=== PATIENT | male | born 1990 | race Hispanic/Latino ===

== ENCOUNTER 2016-11-26 18:21 | Emergency (ER) | payer MEDICAID ==
[2016-11-26 18:54] VITALS: TEMP 98.9; O2SAT 98
[2016-11-26 20:35] LABS: HEMATOCRIT 46.1 % (35.0-51.0); MEAN CELL VOLUME 84.9 fL (80.0-94.0); MEAN CORPUSCULAR HEMOGLOBIN 28.5 pg (27.0-31.0); MEAN CORPUSCULAR HGB CONC 33.6 g/dL (33.0-37.0); MEAN PLATELET VOLUME 8.3 fL (7.2-11.7); RED CELL DISTRIBUTION WIDTH 14.3 % (11.5-14.5); WHITE BLOOD COUNT 12.6 K/uL (4.8-10.8)
--- NOTE | 2016-11-26 21:37 | C.PDOC ---
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 Denies fever or drainage of the injection site. Pt reported injecting heroin once at that site a few days prior to onset of symptoms. Time Seen by Provider: 11/26/16 20:04 Chief Complaint (Nursing): Abnormal Skin Integrity History Per: Patient History/Exam Limitations: no limitations Onset/Duration Of Symptoms: Days Location Of Injury: Right: Forearm Quality Of Symptoms: Other (Abscess) Past Medical History Reviewed: Historical Data, Nursing Documentation, Vital Signs Vital Signs: Last Vital Signs Temp 98.9 F 11/26/16 18:53 Pulse 81 11/26/16 21:47 Resp 16 11/26/16 21:47 BP 132/75 11/26/16 21:47 Pulse Ox 98 11/27/16 00:49 - Medical History PMH: No Chronic Diseases Surgical History: No Surg Hx Family History: States: Unknown Family Hx - Social History Hx Tobacco Use: Yes Hx Alcohol Use: No Hx Substance Use: Yes - Immunization History Hx Tetanus Toxoid Vaccination: No Hx Influenza Vaccination: No Hx Pneumococcal Vaccination: No Review Of Systems Constitutional: Negative for: Fever, Chills Skin: Positive for: Other (Abscess) Physical Exam - Physical Exam Appears: Non-toxic, No Acute Distress Skin: Warm, Dry Head: Atraumatic, Normacephalic Eye(s): bilateral: Normal Inspection Extremity: Normal ROM (x4), No Tenderness, No Deformity, No Swelling, Other ( 5x4cm area of fluctuance to the anterior right forearm with localized erythema, no streaking) Pulses: Left Radial: Normal, Right Radial: Normal Neurological/Psych: Oriented x3, Normal Speech, Normal Cognition ED Course And Treatment - Laboratory Results Result Diagrams: 11/26/16 20:30 O2 Sat by Pulse Oximetry: 98 (Room air) Pulse Ox Interpretation: Normal Progress Note: Motrin administered. I&D performed with success. Patient given wound care instructions and advised to follow up for wound check. - Incision & Drainage Of Abscess Prep Used: Sterile Water, Betadine Procedure: Incised W/Scalpel Blade#:, Drained Pus, Irrigated Cavity W/Saline ( Tolerated well), Probed To Break Up Loculations, Packed W/Gauze Disposition Counseled Patient/Family Regarding: Diagnosis, Need For Followup, Rx Given - Disposition Referrals: emergency room, ER [Other] Disposition: HOME/ ROUTINE Disposition Time: 21:35 Condition: STABLE Additional Instructions: Keep wound dry and clean for 2 days Return to ER in 2 days for wound check and packing removal Keep arm elevated Return to ER if fever, increase redness, severe pain or worse Prescriptions: Clindamycin [Cleocin] 300 mg PO QID #28 cap Instructions: Abscess (ED) Forms: [employer] (Hungarian) - Clinical Impression Clinical Impression: Abscess - Scribe Statement The provider has reviewed the documentation as recorded by the Scribe Gary Fragoso All medical record entries made by the Shondaibe were at my direction and personally dictated by me. I have reviewed the chart and agree that the record accurately reflects my personal performance of the history, physical exam, medical decision making, and the department course for this patient. I have also personally directed, reviewed, and agree with the discharge instructions and disposition.
[2016-11-26 21:47] VITALS: BP 132/75; PULSE 81; RESP 16
== END 2016-11-26 21:46 | disposition home or self-care (01) ==
LOC: C.ER 18:21
DX: L02.413 Cutaneous abscess of right upper limb (principal)

== ENCOUNTER 2016-11-28 20:07 | Emergency (ER) | payer MEDICAID ==
[2016-11-28 20:11] VITALS: BP 112/69; RESP 18; TEMP 97.8
--- NOTE | 2016-11-28 20:53 | C.PDOC ---
History Of Present Illness The pt is a 26yo male, who presents to the ED for a wound check. Pt reports he had an abscess incision and drainage 2 days ago at this facility. Pt states he injected heroin to the site and developed an abscess. He states the redness of the area has significantly improved and currently denies any fevers or chills. Pt offers no additional medical complaints. Time Seen by Provider: 11/28/16 20:13 Chief Complaint (Nursing): Wound Check History Per: Patient History/Exam Limitations: no limitations Onset/Duration Of Symptoms: Days Ago Current Symptoms Are (Timing): Still Present Past Medical History Reviewed: Historical Data, Nursing Documentation, Vital Signs Vital Signs: Last Vital Signs Temp 97.8 F 11/28/16 20:08 Pulse Resp 18 11/28/16 20:08 BP 112/69 11/28/16 20:08 Pulse Ox - Medical History PMH: No Chronic Diseases Denies: Chronic Kidney Disease Surgical History: No Surg Hx Family History: States: Unknown Family Hx - Social History Hx Tobacco Use: Yes Hx Alcohol Use: No Hx Substance Use: Yes - Immunization History Hx Tetanus Toxoid Vaccination: No Hx Influenza Vaccination: No Hx Pneumococcal Vaccination: No Review Of Systems Except As Marked, All Systems Reviewed And Found Negative. Constitutional: Negative for: Fever, Chills Musculoskeletal: Positive for: Other (drained abscess on right forearm) Physical Exam - Physical Exam Appears: Well, Non-toxic, No Acute Distress Skin: Warm, Dry Head: Atraumatic, Normacephalic Eye(s): bilateral: Normal Inspection, EOMI Nose: Normal Oral Mucosa: Moist Neck: Normal ROM, Supple Chest: Symmetrical Respiratory: No Accessory Muscle Use Extremity: Normal ROM, Tenderness, Capillary Refill (< 2 sec), No Deformity, Other ((+) 1cm open wound to the right forearm with surrounding 2cm area of erythema.) Neurological/Psych: Oriented x3, Normal Speech, Normal Cognition, Normal Motor, Normal Sensation ED Course And Treatment Progress Note: Packing removed from I&D site, area irrigated and packing replaced. Area of erythema circled. Pt informed to return to ED in 2 days for follow up. Disposition - Disposition Disposition: HOME/ ROUTINE Disposition Time: 20:00 Condition: STABLE Additional Instructions: Return in 2 days for wound check. Continue antibiotics. Instructions: Abscess Incision and Drainage (ED) Forms: [employer] ([place]) - Clinical Impression Clinical Impression: Abscess, Drug abuse - Scribe Statement The provider has reviewed the documentation as recorded by the Saumya Chairez Provider Attestation: All medical record entries made by the Saumya were at my direction and personally dictated by me. I have reviewed the chart and agree that the record accurately reflects my personal performance of the history, physical exam, medical decision making, and the department course for this patient. I have also personally directed, reviewed, and agree with the discharge instructions and disposition.
== END 2016-11-28 21:13 | disposition home or self-care (01) ==
LOC: C.ER 20:07
DX: Z48.00 Encounter for change or removal of nonsurgical wound dressing (principal); F11.10 Opioid abuse, uncomplicated

== ENCOUNTER 2016-12-03 18:26 | Emergency (ER) | payer MEDICAID ==
[2016-12-03 18:32] VITALS: BMI 20.9
[2016-12-03 18:33] VITALS: BP 102/57; PULSE 58; RESP 18; TEMP 97.4; O2SAT 99
--- NOTE | 2016-12-03 18:40 | C.PDOC ---
History Of Present Illness 26 year old male presents to the ED for a wound check of the right forearm. As per patient, he was seen in the ED November 26 for complaints of abscess and an Incision and Drainage was performed. Patient began clindamycin and returned on the for repacking and has been compliant with medications. He returned 5 days later, today, for a wound check and denies fever, chills, or any pain. Time Seen by Provider: 12/03/16 18:33 History Per: Patient History/Exam Limitations: no limitations Onset/Duration Of Symptoms: Days (originally began 8 days prior and has improved with medications, I &D, and packing) Current Symptoms Are (Timing): Better Reports Recently: Seen In ED, Treated By A Physician Recent travel outside of the [place]: No Additional History Per: Prior Records Past Medical History Reviewed: Historical Data, Nursing Documentation, Vital Signs Vital Signs: Last Vital Signs Temp 97.4 F L 12/03/16 18:32 Pulse 58 L 12/03/16 18:32 Resp 18 12/03/16 18:32 BP 102/57 L 12/03/16 18:32 Pulse Ox 99 12/03/16 18:40 Family History: States: Unknown Family Hx - Social History Hx Tobacco Use: Yes Hx Alcohol Use: No Hx Substance Use: Yes - Immunization History Hx Tetanus Toxoid Vaccination: No Hx Influenza Vaccination: No Hx Pneumococcal Vaccination: No Review Of Systems Constitutional: Negative for: Fever, Chills Cardiovascular: Negative for: Chest Pain Respiratory: Negative for: Shortness of Breath Gastrointestinal: Negative for: Vomiting Musculoskeletal: Negative for: Arm Pain Skin: Negative for: Rash Neurological: Negative for: Weakness, Numbness Physical Exam - Physical Exam Appears: Non-toxic, No Acute Distress Skin: Warm, Dry, Other (central opening to medial aspect of right forearm. Packing is out and opening has no depth. Surrouding area of slight erythmea and induraiton that does not extend beyond waldrop placed. No drainage now, no tenderness. ) Head: Atraumatic Eye(s): bilateral: Normal Inspection, EOMI Nose: Normal Oral Mucosa: Moist Neck: Supple Chest: Symmetrical, No Deformity Cardiovascular: Rhythm Regular Extremity: Normal ROM, No Tenderness, No Calf Tenderness, Capillary Refill ( good capillary refill, less than 2 seconds ), No Deformity, No Swelling Neurological/Psych: Oriented x3, Normal Speech, Normal Cognition Gait: Steady ED Course And Treatment O2 Sat by Pulse Oximetry: 99 (room air ) Progress Note: Patient's wound was redressed and discharged home. Disposition Counseled Patient/Family Regarding: Diagnosis, Need For Followup - Disposition Disposition: HOME/ ROUTINE Disposition Time: 18:39 Condition: STABLE Instructions: Acute Wound Care (ED) Forms: General Discharge Instructions - POA Present On Arrival: None - Clinical Impression Clinical Impression: Encounter for wound care - Scribe Statement The provider has reviewed the documentation as recorded by the Scribmichael Garcia All medical record entries made by the Shondaibe were at my direction and personally dictated by me. I have reviewed the chart and agree that the record accurately reflects my personal performance of the history, physical exam, medical decision making, and the department course for this patient. I have also personally directed, reviewed, and agree with the discharge instructions and disposition.
== END 2016-12-03 18:49 | disposition home or self-care (01) ==
LOC: C.ER 18:26 → SUPCPDRO 18:26 → C.ER 18:49
DX: Z48.00 Encounter for change or removal of nonsurgical wound dressing (principal)